=== PATIENT | female | born 1975 | race Caucasian/White ===

== ENCOUNTER → 2024-06-02 08:39 | Outpatient (REF) | payer OTHER, SELFPAY | LOC: PAVMRI 08:39 | PROVIDERS: ATTENDING PHYSICIAN Physician Assistant Surgical; FAMILY PHYSICIAN Nurse Practitioner Obstetrics & Gynecology | DX: M50.222 Other cervical disc displacement at C5-C6 level (principal); M54.2 Cervicalgia; M54.12 Radiculopathy, cervical region; Z98.1 Arthrodesis status | CPT/HCPCS: 72141 ==

== ENCOUNTER → 2024-07-11 11:18 | Outpatient (REF) | payer OTHER, SELFPAY ==
[2024-07-11 12:41] LABS: Rubella Positive
[2024-07-11 12:53] LABS: Hepatitis B Surface Antibody Positive
[2024-07-13 06:06] LABS: Quantiferon Mitogen minus NIL 9.97 IU/mL; Quantiferon NIL 0.03 IU/mL; Quantiferon TB Gold Plus Negative (Negative)
[2024-07-13 13:23] LABS: Mumps Virus IgG Positive; Rubeola (Measles) IgG Equivocal; Varicella Zoster IgG (VZV) Positive
== END ==
LOC: OHS 11:18
PROVIDERS: ATTENDING PHYSICIAN Nurse Practitioner Family
DX: Z23 Encounter for immunization (principal)
CPT/HCPCS: 36415; 86480; 86706; 86735; 86762; 86765; 86787

== ENCOUNTER → 2025-01-30 17:35 | Outpatient (REF) | payer OTHER, SELFPAY | LOC: WDC 17:35 | PROVIDERS: ATTENDING PHYSICIAN Nurse Practitioner Obstetrics & Gynecology; FAMILY PHYSICIAN Physician Assistant Medical | DX: Z12.31 Encounter for screening mammogram for malignant neoplasm of breast (principal) | CPT/HCPCS: 77063; 77067 ==